=== PATIENT | male | born 1940 | race Caucasian/White ===

== ENCOUNTER → 2019-07-09 15:42 | Outpatient (ROUT) | payer MEDICARE, SELFPAY ==
[2019-07-09 15:59] LABS: Add Manual Diff / Slide Review NO; Basophils Absolute Auto 0 /uL (0-100); Basophils Percent Auto 0.4 % (0-2); Eosinophils Absolute Auto 0 /uL (0-450); Eosinophils Percent Auto 0.3 % (2-4); Hematocrit 34.4 % (41-53); Hemoglobin 11.7 g/dL (13.5-17.5); Lymphocytes Absolute Auto 1200 /uL (1100-4500); Mean Corpuscular Hemoglobin 32.2 PG (26-34); Mean Corpuscular Volume 94.7 fL (80-100); Monocytes Absolute Auto 1100 /uL (0-900); Neutrophils Absolute Auto 8100 /uL (1500-7000); Neutrophils Percent Auto 77.3 % (50-75); Platelet Count 330 X10^3/uL (150-400); Red Blood Cell Count 3.63 X10^6/uL (4.5-5.9); Red Cell Distribution Width 15.4 % (11.6-14.8); White Blood Cell Count 10.5 X10^3/uL (4.5-11.0)
[2019-07-09 16:19] LABS: Alanine Aminotransferase 18 IU/L (<50); Albumin 3.2 g/dL (3.5-5.0); Albumin Globulin Ratio 1.3 (1.0-2.8); Alkaline Phosphatase 181 U/L (38-126); Aspartate Aminotransferase 29 IU/L (17-59); BUN Creatinine Ratio 24.5 (6-22); Bilirubin Total 0.6 mg/dL (0.2-1.3); Blood Urea Nitrogen 27 mg/dL (9-20); Calcium 11.2 mg/dL (8.4-10.2); Carbon Dioxide 27 mmol/L (22-32); Chloride 103 mmol/L (98-107); Estimated Glomerular Filt Rate > 60.0 mL/min (>60); Globulin 2.5 g/dL (1.7-4.1); Glucose 95 mg/dL (80-110); HEMOLYSIS < 15 (0-50); Potassium 4.2 mmol/L (3.4-5.1); Sodium 137 mmol/L (137-145); Total Protein 5.7 g/dL (6.3-8.2)
[2019-07-09 18:19] LABS: Prostate Specific Antigen Scrn 1380 ng/mL (0.1-4.0)
== END ==
PROVIDERS: Family Provider Internal Medicine; Visit Provider Internal Medicine
DX: Z12.5 Encounter for screening for malignant neoplasm of prostate (principal); C79.51 Secondary malignant neoplasm of bone; E05.30 Thyrotoxicosis from ectopic thyroid tissue without thyrotoxic crisis or storm; N18.9 Chronic kidney disease, unspecified
CPT/HCPCS: 80053; 84443; 85025; G0103

== ENCOUNTER → 2019-07-24 09:20 | Outpatient (CLI) | payer MEDICARE, SELFPAY ==
--- NOTE | 2019-07-24 | DI.CT.S_ITS ---
PROCEDURE: CT CHEST ABD PEL W CON INDICATIONS: Secondary malignant neoplasm of bone TECHNIQUE: After the administration of oral and intravenous contrast, 5 mm thick sections acquired from the lung apices to the symphysis. 5 mm coronal and sagittal reformats were performed, with additional 7 mm coronal MIP reformats through the lungs. For radiation dose reduction, the following was used: automated exposure control, adjustment of mA and/or kV according to patient size. COMPARISON: [facility], MR, MR LUMBAR SPINE WITHOUT CONTRAST, 07/04/2019, 13:38. [facility], CR, XR FEMUR 2+ VIEWS RIGHT, 07/16/2019, 13:16. [facility], NM, NM BONE SCAN WHOLE BODY, 07/24/2019, 13:29. FINDINGS: Image quality: Excellent. CHEST: Lungs and pleura: No acute airspace opacities. No pleural effusions or pneumothorax. Central and peripheral airways appear patent and normal in caliber. Mediastinum: Heart size is normal. No pericardial effusion. There is mild mediastinal adenopathy by size criteria involving the pretracheal space, subcarinal space in the anterior mediastinum along the left lateral border of the aortic arch anteriorly, comprised of mildly enlarged nodes that are homogeneously thickened and enhancing. Thoracic aorta and central pulmonary arteries are normal in size. Esophagus is normal in caliber. No hiatal hernia. Chest wall: No axillary or supraclavicular adenopathy by size criteria. Thyroid gland is asymmetrically enlarged on the right and may contain a large homogeneously enhancing nodule.. ABDOMEN: Solid organs: Liver is normal in size and enhancement. Gallbladder appears normal. Biliary system is non dilated. Pancreas enhances normally. Spleen is normal in size and enhancement. No adrenal nodules. Kidneys demonstrate normal size and enhancement, without hydronephrosis. Peritoneum and bowel: Bowel loops demonstrate normal wall thickness and caliber. No free fluid or air. Nodes and vessels: No retroperitoneal or mesenteric adenopathy by size criteria. Aorta and inferior vena cava are normal in size. Miscellaneous: No ventral hernias. PELVIS: Genitourinary: Bladder wall thickness is normal. Miscellaneous: No inguinal hernias or adenopathy. Bones: Over the axial and appendicular skeleton there is extensive osseous metastatic disease comprised of multifocal small cortical osteolyt defects, without currently visualized pathologic fracture. 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 No vertebral body compression fractures. IMPRESSION: 1. Recommend thyroid ultrasound given the asymmetric enlargement of the right thyroid lobe by a potential solid hyperenhancing mass lesion. 2. Through the chest abdomen and pelvis a discrete focus of presumed primary neoplasm is not found. 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 3. Mild mediastinal adenopathy as discussed, but a pulmonary source of the current disease process is not identified. Dictated by: Zi Greenfield M.D. on 07/24/2019 at 17:57 Approved by: Zi Greenfield M.D. on 07/24/2019 at 18:07
--- NOTE | 2019-07-24 | DI.NM.S_ITS ---
PROCEDURE: NM BONE SCAN WHOLE BODY RADIOPHARMACEUTICAL: 19.70 mCi Tc-99m MDP IV. INDICATIONS: Secondary malignant neoplasm of bone TECHNIQUE: Delayed whole-body scintigrams were obtained approximately 3-4 hours after intravenous injection of radiotracer. Anterior and posterior views were acquired from vertex to feet. . COMPARISON: [facility], MR, MR LUMBAR SPINE WITHOUT CONTRAST, 07/04/2019, 13:38. [facility], CR, XR FEMUR 2+ VIEWS RIGHT, 06/17/2019, 14:40. [facility], CR, XR PELVIS 1 OR 2 VIEWS, 06/02/2019, 14:52. [facility], CR, XR PELVIS 1 OR 2 VIEWS, 06/17/2019, 14:40. FINDINGS: Foci of relatively intense radiotracer uptake identified in the calvarium of the skull, the mandible, the clavicles bilaterally, the sternum, the ribs bilaterally, the cervical spine, thoracic spine, lumbar spine, bilateral bony pelvis, bilateral humeri and bilateral femurs compatible with osseous metastatic disease. Linear photopenia noted in the right femur compatible with the presence of intramedullary rukhsana and dynamic compression screw. No abnormal soft tissue uptake. Activity in the kidneys is normal and symmetric. IMPRESSION: Extensive osseous metastatic disease. Dictated by: Mahi Lassiter MD, PhD on 07/24/2019 at 15:48 Approved by: Mahi Lassiter MD, PhD on 07/24/2019 at 15:53
== END ==
PROVIDERS: Family Provider Internal Medicine; PCP Internal Medicine; Referring Provider Internal Medicine; Visit Provider Internal Medicine
DX: C79.51 Secondary malignant neoplasm of bone (principal); C80.1 Malignant (primary) neoplasm, unspecified; E04.9 Nontoxic goiter, unspecified; R59.0 Localized enlarged lymph nodes
CPT/HCPCS: 71260; 74177; 78306; A9503; Q9967